=== PATIENT | male | born 1945 | race American Indian/Alaskan Native ===

== ENCOUNTER 2018-06-01 19:27 | Emergency (ER) | payer OTHER ==
[2018-06-01] MEDS ORDERED: EPINEPHrine 1 MG/10 ML SYR IV ONE (19:28)
[2018-06-01] MEDS ORDERED: ATROPINE SULF 1 MG/10 ML SYR IV ONE (19:28)
[2018-06-01 19:46] LABS: Absolute Lymphocytes (CBC) 1.3 K/uL (0.7-4.9); Absolute Monocytes 0.4 K/uL (0.1-1.3); Basophils % 0.6 % (0-1.3); Eosinophils % 1.5 % (0-4.4); Hematocrit 25.8 % (39.6-49.0); Lymphocytes % 16.8 % (15.3-44.8); MCH 29.9 pg (27.0-35.0); MPV 8.3 fL (7.6-11.3); Monocytes % 4.6 % (3.3-12.3); RBC Red Blood Cell Count 2.81 M/uL (4.33-5.43)
[2018-06-01 19:54] LABS: Protime INR 1.05
[2018-06-01] MEDS ORDERED: INSULIN -REGULAR HUMAN 50 UNIT/0.5 ML ML ONE (19:56)
[2018-06-01] MEDS ORDERED: NA CHLORIDE 0.9% 1,000 ML ONE (19:56)
[2018-06-01] MEDS ORDERED: ONDANSETRON 4 MG/2 ML VIAL ONE (19:56)
[2018-06-01 20:15] LABS: ALT/SGPT 31 U/L (12-78); AST/SGOT 41 U/L (15-37); Albumin 3.2 g/dL (3.4-5.0); Alkaline Phosphatase 137 U/L (45-117); BUN Blood Urea Nitrogen 30 mg/dL (7-18); Bicarbonate 21 mmol/L (21-32); Bilirubin Direct 0.2 mg/dL (0-0.2); Bilirubin Total 0.4 mg/dL (0.2-1.0); CKMB Creatine Kinase MB 3.7 ng/mL (0.3-3.6); Creatine Phosphokinase 91 U/L (39-308); Lipase 86 U/L (73-393); NT PRO-BNP 1990 pg/mL (<450); Potassium 5.3 mmol/L (3.5-5.1); Protein, Total 7.4 g/dL (6.4-8.2); Sodium Level 137 mmol/L (136-145)
[2018-06-01 20:18] LABS: Glucose Level 469 mg/dL (74-106)
[2018-06-01] MEDS ORDERED: LEVALBUTEROL 1.25 MG/3 ML NEB ONE ×2 (20:18→22:17)
--- NOTE | 2018-06-01 20:23 | RAD REPORT ---
EXAM DESCRIPTION: Lupis Single View06/01/2018 7:56 pm CLINICAL HISTORY: Shortness of breath COMPARISON: None FINDINGS: Mild bilateral pulmonary opacities are present. The heart is mildly to moderately enlarge d. Postsurgical changes involve the chest. IMPRESSION: Mild CHF
--- NOTE | 2018-06-01 20:26 | RAD REPORT ---
EXAM DESCRIPTION: CT - Head Brain Wo Cont - 06/01/2018 8:04 pm CLINICAL HISTORY: Syncope COMPARISON: None. TECHNIQUE: Computed axial tomography of the head was obtained. IV contrast was not requested. All CT scans are performed using dose optimization technique as appropriate and may include automated exposure control or mA/KV adjustment according to patient size. FINDINGS: An intracranial bleed is not seen . The ventricles are normal in caliber. No extra-axial fluid collection is noted. Small low-density area within the right basal ganglia may r epresent an old lacunar infarction. Mild cerebral atrophy is seen. Vascular calcifications are presen t Fluid within the sinuses/ mastoids is not seen. IMPRESSION: No acute intracranial abnormality is seen. If patient's symptoms persist MRI of the bra in would be recommended.
[2018-06-01] MEDS ORDERED: NA CHLORIDE 0.9% 250 ML ONE (21:17)
[2018-06-01] MEDS ORDERED: PANTOPRAZOLE 40 MG INJ ONE (21:17)
[2018-06-01] MEDS ORDERED: FENTANYL CITR 100 MCG/2 ML ONE (21:44)
[2018-06-01] MEDS ORDERED: LORazepam 2 MG/ML VIAL ONE (21:51)
[2018-06-01] MEDS ORDERED: NA CHLORIDE 0.9% 500 ML ONE ×3 (21:58→23:09)
[2018-06-01 22:18] LABS: Potassium 4.6 mmol/L (3.5-5.1)
--- NOTE | 2018-06-01 22:23 | ER ---
Nurse's Notes [facility] Name: Nnacy Vyas Age: 73 yrs Sex: Male : 1945 Arrival Date: 06/01/2018 Time: 19:32 Bed 4 Private MD: Diagnosis: Lower GI bleed;Pulmonary edema;Dyspnea, unspecified;Syncope and collapse;Bradycardia, unspecified Presentation: 06/01 19:25 Method Of Arrival: EMS: [facility] 19:25 Presenting complaint: Child states: that pt [place] the [place] the beach and passed fc out. Denies swallowing any water. Pt is extremely nauseated and vomiting. Transition of care: patient was not received from another setting of care. Onset of symptoms was June 01, 2018 at 18:30. Risk Assessment: Do you want to hurt yourself or someone else? Patient reports no desire to harm self or others. Initial Sepsis Screen: Does the patient meet any 2 criteria? RR > 20 per min. HR > 90 bpm. Yes Does the patient have a suspected source of infection? Yes: Other: unknown. Care prior to arrival: Glucose check: 500. 19:25 Acuity: OMAR 2 Triage Assessment: 19:49 General: Appears slender, Behavior is cooperative, appropriate for age, flat. Pain: fc Denies pain. EENT: No deficits noted. Neuro: Level of Consciousness is awake, alert, obeys commands, Oriented to person, place, time, situation, Reports dizziness. Cardiovascular: No deficits noted. Respiratory: No deficits noted. GI: Abdomen is flat, Bowel sounds present X 4 quads. Abd is soft and non tender X 4 quads. Reports nausea, vomiting. : No deficits noted. Derm: Skin is pink, warm \T\ dry. Musculoskeletal: Circulation, motion, and sensation intact. Capillary refill < 3 seconds, Range of motion: intact in all extremities. Historical: - Allergies: 19:49 No Known Allergies; fc - Home Meds: 19:49 Ranexa 500 mg oral Tb12 1 tab 2 times per day [Active]; BRILINTA 60 mg oral tab 1 tab 2 fc times per day [Active]; losartan oral 12.5 oral 1 tab once daily [Active]; atorvastatin 40 mg oral tab 1 tab once daily [Active]; metoprolol tartrate 50 mg Oral tab 1 tab 2 times per day [Active]; aspirin 81 mg Oral TbEC 1 tab once daily [Active]; Lantus 100 unit/mL Sub-Q soln 30 unit twice a day [Active]; fluticasone inhalation inhalation 1 puff 2 times per day [Active]; Spiriva with HandiHaler 18 mcg inhalation CpDv 1 cap once daily [Active]; Humalog Pen Sub-Q before meals [Active]; - PMHx: 19:49 Diabetes - IDDM; Hypertension; Hyperlipidemia; High Cholesterol; Myocardial infarction; fc CAD; - PSHx: 19:49 CABG; Heart stents; Knee surgery; fc - Immunization history:: Last tetanus immunization: up to date. - Social history:: Smoking status: Patient/guardian denies using tobacco. - Ebola Screening: : Patient negative for fever greater than or equal to 101.5 degrees Fahrenheit, and additional compatible Ebola Virus Disease symptoms Patient denies exposure to infectious person Patient denies travel to an Ebola-affected area in the 21 days before illness onset. - Family history:: not pertinent. - Hospitalizations: : No recent hospitalization is reported. Screenin:25 Abuse screen: Denies threats or abuse. Nutritional screening: No deficits noted. fc Tuberculosis screening: No symptoms or risk factors identified. Fall Risk None identified. Assessment: 19:45 General: Appears in no apparent distress. comfortable, Behavior is calm, cooperative, ao appropriate for age. Pain: Denies pain. Neuro: Level of Consciousness is awake, alert, obeys commands, Oriented to person, place, time, situation, Appropriate for age Moves all extremities. Full function Speech is normal. Cardiovascular: Capillary refill < 3 seconds Patient's skin is warm and dry. Respiratory: Airway is patent Respiratory effort is even, unlabored, Respiratory pattern is regular, symmetrical. GI: Abdomen is flat. GI: Reports nausea, vomiting. : No signs and/or symptoms were reported regarding the genitourinary system. EENT: No signs and/or symptoms were reported regarding the EENT system. Derm: Skin is intact, Skin is pink, warm \T\ dry. normal, Skin temperature is warm. Musculoskeletal: Circulation, motion, and sensation intact. Range of motion:. 21:25 Reassessment: Patient states feeling dizzy; Passed exhibited seizure-like activity at lp1 this time, lying in bed, snoring respirations noted, unresponsive to painful stimuli, eye deviation to left side, lasted about 20 seconds, HR noted at 46 during activity; Patient alert and oriented after episode. 21:49 Reassessment: Patient passed out at this time, snoring respirations noted, Dr. Wetzel at 1 bedside. 22:00 General: Appears ill, Behavior is drowsy. Pain: Complains of pain in chest. Neuro: lp1 Level of Consciousness is awake, alert, obeys commands, Oriented to person, place, situation. Cardiovascular: Capillary refill < 3 seconds in bilateral fingers toes. Respiratory: Airway is patent Trachea midline Respiratory effort is labored, Respiratory pattern is regular. GI: Abdomen is non-distended. Derm: Skin is intact, Skin is dry, Skin is pale, Skin temperature is cool. 22:17 Reassessment: Report given to LOGAN with [facility], will call back with ETA. 1 22:33 Reassessment: Report given to TESSA Bernstein at [facility] in [facility], Room 264; Son, lpAlan Sawant left number [phone]. 22:40 Reassessment: Patient passed out again at this time; [facility] at bedside, HR at 72; lp1 Dr. Wetzel called to bedside. 22:52 Reassessment: 1st unit of PRBC given at this time; pressure bag used; See Blood [facility] Transfusion sheet for vitals. 23:00 Reassessment: [facility] to intubate patient at this time. lp1 23:12 Reassessment: Patient bradycardic then CPR initiated; [place], Atropine, Calcium given lp1 IV. 23:15 Reassessment: 2nd unit of PRBC given to [facility] to be transfused during flight. 1 Vital Signs: 19:25 BP 105 / 52; Pulse 103; Resp 24; Temp 97.4(A); Pulse Ox 95% on R/A; Weight 82.1 kg (R); Height 5 ft. 10 in. (177.80 cm) (R); Pain 0/10; 20:00 BP 105 / 56; Pulse 101; Resp 26; Pulse Ox 96% on 4 lpm NC; lp1 21:15 BP 95 / 59; Pulse 109; Resp 24; Pulse Ox 92% on 4 lpm NC; lp1 21:28 BP 104 / 60; Pulse 85; Resp 24; Pulse Ox 94% on 4 lpm NC; lp1 22:15 BP 95 / 54; Pulse 108; Resp 24; Temp 97.7(A); Pulse Ox 99% on 50% BiPAP; lp1 22:30 BP 93 / 65; Pulse 111; Resp 28; Pulse Ox 100% on 50% BiPAP; lp1 19:25 Body Mass Index 25.97 (82.10 kg, 177.80 cm) fc 22:15 Bipap settings, 12/6, 50% O2, Rate of 12 lp1 Syl Coma Score: 22:15 Eye Response: spontaneous(4). Verbal Response: oriented(5). Motor Response: obeys lp1 commands(6). Total: 15. ED Course: 19:25 No provider procedures requiring assistance completed. fc 19:25 Arm band placed on Patient placed in an exam room, on a stretcher. fc 19:25 Patient has correct armband on for positive identification. Placed in gown. Bed in low fc position. Call light in reach. Side rails up X2. electronic device monitor on. Pulse ox on. NIBP on. 19:26 EKG done, by ED staff, reviewed by Antwan Wetzel MD. fc 19:32 Patient arrived in ED. sg 19:32 Antwan Wetzel MD is Attending Physician. rn 19:32 Initial lab(s) drawn, by or, sent to lab. Inserted saline lock: 20 gauge in right sg antecubital area, using aseptic technique. Blood collected. 19:40 Triage completed. fc 19:46 Refugio Mary RN is Primary Nurse. ao 19:54 X-ray completed. Portable x-ray completed in exam room. Patient tolerated procedure kw well. 19:55 XRAY Chest (1 view) In Process Unspecified. EDMS 20:04 CT Head Brain wo Cont In Process Unspecified. EDMS 20:04 CT completed. Patient tolerated procedure well. Patient moved back from CT. bq 20:17 Notified ED physician of a critical lab result(s). glucose 469. fc 21:50 Inserted saline lock: 20 gauge in left antecubital area, using aseptic technique. By lp1 eRfugio Mary RN. 23:28 Patient transferred, IV remains in place. lp1 Administered Medications: Discontinued: NS 0.9% 1000 ml IV at 1000 ml once 19:55 Drug: NS 0.9% 1000 ml Route: IV; Rate: 1000 ml; Site: right antecubital; ao 19:58 Drug: Zofran 4 mg Route: IVP; Site: right antecubital; ao 21:21 Follow up: Response: No adverse reaction; Marked relief of symptoms; Vomiting decreased lp1 20:23 Drug: Xopenex 1.25 mg Route: Inhalation; ao 20:30 Drug: Insulin Regular Human 10 units {Co-Signature: lp1 (Carol Solorzano RN).} Route: Sub-Q; ao Site: left upper arm; 21:52 Follow up: Response: Blood sugar is lowered lp1 21:51 Drug: ProTONIX 40 mg Route: IVP; Site: right antecubital; lp1 22:11 Follow up: Response: No adverse reaction lp1 21:51 Drug: ProTONIX 8 mg/hr Route: IV; Rate: 25 ml/hr; Site: right antecubital; lp1 22:38 Follow up: IV Status: Infusion continued upon transfer lp1 21:53 Drug: fentaNYL (PF) 25 mcg Route: IVP; Site: right antecubital; lp1 22:37 Follow up: Response: No adverse reaction lp1 21:55 Drug: NS 0.9% 250 ml Route: IV; Rate: 1 bolus; Site: right antecubital; lp1 22:37 Follow up: IV Status: Completed infusion; IV Intake: 250ml lp1 22:15 Drug: Xopenex 1.25 mg Route: Inhalation; lp1 Point of Care Testing: Blood Glucose: 19:31 Blood Glucose: 457 mg/dL; fc 21:31 Blood Glucose: 457 mg/dL; lp1 Guaiac: 20:55 Stool Guaiac: Positive; Stool Hemoccult Control: Pass; rn Ranges: Intake: 22:37 IV: 250ml; Total: 250ml. lp1 Outcome: 21:51 critical lp1 22:18 Instructed on the need for transfer. lp1 22:22 ER care complete, transfer ordered by . rn 23:32 Transferred by helicopter to [facility], Transfer form completed. lp1 X-rays sent w/ patient. Note: Transferred to [facility] in the [place] 23:32 Condition: deteriorated 23:36 Patient left the ED. lp1 Signatures: Dispatcher [employer] EDMS Blake Ortega, RN TESSA Wendi Mcneil Felicia, RN Antwan Bansal MD MD rn Whitley, Kimberlee kw Pena, Laura, RN RN lp1 Refugio Mary RN TESSA Solorzano RN lp1 Corrections: (The following items were deleted from the chart) 21:50 21:15 Reassessment: Patient states feeling dizzy; Passed out at this time, lying in lp1 bed, snoring respirations noted, unresponsive to painful stimuli, lasted about 20 seconds; Patient alert and oriented after episode lp1 21:50 21:15 Reassessment: Patient states feeling dizzy; Passed exhibited seizure-like lp1 activity at this time, lying in bed, snoring respirations noted, unresponsive to painful stimuli, eye deviation to left side, lasted about 20 seconds; Patient alert and oriented after episode lp1 22:07 21:15 Reassessment: Patient states feeling dizzy; Passed exhibited seizure-like lp1 activity at this time, lying in bed, snoring respirations noted, unresponsive to painful stimuli, eye deviation to left side, lasted about 20 seconds, HR noted at 46 during activity; Patient alert and oriented after episode lp1 22:35 21:49 Neuro: Seizure activity noted at this time. Dr. Wetzel at bedside after, patient lp1 oriented lp1 22:36 22:15 BP 95 / 54; Pulse 108bpm; Resp 24bpm; Pulse Ox 99% 02 50% BiPAP; Bipap settings, lp1 12/6, 50% O2, Rate of 12; lp1 23:32 23:15 Reassessment: Patient bradycardic then CPR initiated; [place], Atropine, Calcium lp1 given IV lp1 23:38 22:00 Derm: Skin is intact, Skin is dry, Skin is normal, Skin temperature is cool lp1 lp1
--- NOTE | 2018-06-01 22:23 | EDPHYS ---
Physician Documentation [facility] Name: Nancy Vyas Age: 73 yrs Sex: Male : 1945 Arrival Date: 06/01/2018 Time: 19:32 Bed 4 Private MD: ED Physician Antwan Wetzel HPI: 06/01 19:58 This 73 yrs old Other Male presents to ER via EMS with complaints of dizziness, syncope.rn 19:58 The patient has experienced syncope. Onset: The symptoms/episode began/occurred just rn prior to arrival. Onset: The symptoms/episode began/occurred 1 hour(s) ago. Duration: This was a single episode. Associated signs and symptoms: Pertinent positives: dizziness, nausea, vomiting. The patient has not experienced similar symptoms in the past. Reports felt ok earlier in day, was at beach, indoors, went outside to water when sun going down, complained of nausea/vomiting/dizziness, sudden onset, no chest pain/abd pain. Had syncopal episode in water, family states only in water less than 1 minute and pulle dhim out, + mild sob. . Historical: - Allergies: 19:49 No Known Allergies; fc - Home Meds: 19:49 Ranexa 500 mg oral Tb12 1 tab 2 times per day [Active]; BRILINTA 60 mg oral tab 1 tab 2 fc times per day [Active]; losartan oral 12.5 oral 1 tab once daily [Active]; atorvastatin 40 mg oral tab 1 tab once daily [Active]; metoprolol tartrate 50 mg Oral tab 1 tab 2 times per day [Active]; aspirin 81 mg Oral TbEC 1 tab once daily [Active]; Lantus 100 unit/mL Sub-Q soln 30 unit twice a day [Active]; fluticasone inhalation inhalation 1 puff 2 times per day [Active]; Spiriva with HandiHaler 18 mcg inhalation CpDv 1 cap once daily [Active]; Humalog Pen Sub-Q before meals [Active]; - PMHx: 19:49 Diabetes - IDDM; Hypertension; Hyperlipidemia; High Cholesterol; Myocardial infarction; fc CAD; - PSHx: 19:49 CABG; Heart stents; Knee surgery; fc - Immunization history:: Last tetanus immunization: up to date. - Social history:: Smoking status: Patient/guardian denies using tobacco. - Ebola Screening: : Patient negative for fever greater than or equal to 101.5 degrees Fahrenheit, and additional compatible Ebola Virus Disease symptoms Patient denies exposure to infectious person Patient denies travel to an Ebola-affected area in the 21 days before illness onset. - Family history:: not pertinent. - Hospitalizations: : No recent hospitalization is reported. ROS: 19:58 Constitutional: Negative for fever, chills, and weight loss, Eyes: Negative for injury, rn pain, redness, and discharge, Neck: Negative for injury, pain, and swelling, Cardiovascular: Negative for chest pain, palpitations, and edema, Respiratory: + mild sob Abdomen/GI: + nausea/vomiting MS/Extremity: Negative for injury and deformity, Skin: Negative for injury, rash, and discoloration, Neuro: Negative for headache, numbness, tingling, and seizure. Exam: 19:58 Constitutional: This is a well developed, well nourished patient who is awake but rn appears tired and slow to respond Head/Face: Normocephalic, atraumatic. Eyes: Pupils equal round and reactive to light, extra-ocular motions intact. Lids and lashes normal. Conjunctiva and sclera are non-icteric and not injected. Cornea within normal limits. Periorbital areas with no swelling, redness, or edema. ENT: dry MM Cardiovascular: tachycardic, regular, no murmur Respiratory: decreased breath sounds bilaterally, no wheezing, mild tachypnea Abdomen/GI: Soft, non-tender, with normal bowel sounds. No distension or tympany. No guarding or rebound. No evidence of tenderness throughout. MS/ Extremity: Pulses equal, no cyanosis. Neurovascular intact. Full, normal range of motion. Equal circumference. Neuro: Awake, GCS 15, oriented to person, place, time, and situation. Cranial nerves II-XII grossly intact. Motor strength 5/5 in all extremities. Sensory grossly intact. Cerebellar exam normal. Vital Signs: 19:25 BP 105 / 52; Pulse 103; Resp 24; Temp 97.4(A); Pulse Ox 95% on R/A; Weight 82.1 kg (R); fc Height 5 ft. 10 in. (177.80 cm) (R); Pain 0/10; 20:00 BP 105 / 56; Pulse 101; Resp 26; Pulse Ox 96% on 4 lpm NC; lp1 21:15 BP 95 / 59; Pulse 109; Resp 24; Pulse Ox 92% on 4 lpm NC; lp1 21:28 BP 104 / 60; Pulse 85; Resp 24; Pulse Ox 94% on 4 lpm NC; lp1 22:15 BP 95 / 54; Pulse 108; Resp 24; Temp 97.7(A); Pulse Ox 99% on 50% BiPAP; lp1 22:30 BP 93 / 65; Pulse 111; Resp 28; Pulse Ox 100% on 50% BiPAP; lp1 19:25 Body Mass Index 25.97 (82.10 kg, 177.80 cm) fc 22:15 Bipap settings, 12/6, 50% O2, Rate of 12 lp1 Atkinson Coma Score: 22:15 Eye Response: spontaneous(4). Verbal Response: oriented(5). Motor Response: obeys lp1 commands(6). Total: 15. MDM: 19:32 Patient medically screened. rn 20:58 ED course: Fluids stopped after a little due to pulmonary edema/chf, patient also with rn active GI bleed, states noticed blood in stool 2 days ago, exam reveals hematochezia with black/maroon blood, has been having diarrhea. Neuro exam normal including finger to nose, patient states too weak to walk. COmbination of GI bleed, anemia, weakness, sob, chf, and hyperglycemia, needs admission, family requesting transfer to [facility] given his vice principal is there, diabetic/renal doctor there, and family doctor there. . 22:08 ED course: Pt accepted to ICU at [facility], + concern for demand ischemia organisation and methods analyst uncovered ischemia due to anemia and known cardiac problems, has now had 2 syncopal episodes, correlate with episodes of bradycardia, BNP and trop elevated, + sob, will place on bipap for transfer. Called for [facility]. . 22:15 ED course: On going GI Bleed precludes anticoagulation at this time.. rn 22:20 Differential Diagnosis: cardiac arrhythmia, cerebrovascular accident, emotional rn response, GI bleed, idiopathic syncope, seizure, transient ischemic attack, vasovagal episode. Data reviewed: vital signs, nurses notes, lab test result(s), EKG, radiologic studies, CT scan, plain films, and as a result, I will admit patient. Counseling: I had a detailed discussion with the patient and/or guardian regarding: the historical points, exam findings, and any diagnostic results supporting the discharge/admit diagnosis, lab results, radiology results, the need to transfer to another facility, for higher level of care, [facility] does not immediately have the required specialist. 22:57 ED course: Upon arrival at ER, le witnessed another syncopal episode and rn le made decision to intubate for transport safety.. 06/01 19:34 Order name: Basic Metabolic Panel; Complete Time: 20:46 rn 06/01 19:34 Order name: CBC with Diff; Complete Time: 19:57 rn 06/01 19:34 Order name: Ckmb; Complete Time: 20:46 06/01 19:34 Order name: CPK; Complete Time: 20:46 06/01 19:34 Order name: Hepatic Function; Complete Time: 20:46 06/01 19:34 Order name: Lipase; Complete Time: 20:46 06/01 19:34 Order name: Protime (+inr); Complete Time: 19:57 06/01 19:34 Order name: Ptt, Activated; Complete Time: 19:57 06/01 19:34 Order name: Troponin (emerg Dept Use Only); Complete Time: 21:30 06/01 19:34 Order name: N-Terminal Pro-brain Natriuretic Peptide; Complete Time: 20:46 06/01 19:34 Order name: Ketone, Serum; Complete Time: 20:46 06/01 20:56 Order name: Type And Screen 06/01 21:08 Order name: Packed RBC Leukored -1 [facility] 06/01 19:34 Order name: CT Head Brain wo Cont; Complete Time: 20:46 06/01 19:34 Order name: EKG; Complete Time: 19:34 06/01 19:34 Order name: XRAY Chest (1 view); Complete Time: 20:46 06/01 21:25 Order name: EKG; Complete Time: 21:26 mw2 06/01 21:48 Order name: Chem 7; Complete Time: 22:22 lp1 06/01 22:07 Order name: BIPAP 06/01 22:31 Order name: ABO/RH no charge [facility] 06/01 19:34 Order name: Cardiac monitoring; Complete Time: 19:46 rn 06/01 19:34 Order name: EKG - Nurse/Tech; Complete Time: 19:34 rn 06/01 19:34 Order name: IV Saline Lock; Complete Time: 19:47 rn 06/01 19:34 Order name: Labs collected and sent; Complete Time: 19:47 rn 06/01 19:34 Order name: NPO; Complete Time: 19:47 rn 06/01 19:34 Order name: O2 Per Protocol; Complete Time: 19:47 rn 06/01 19:34 Order name: O2 Sat Monitoring; Complete Time: 19:47 rn 06/01 21:25 Order name: EKG - Nurse/Tech; Complete Time: 21:51 mw2 06/01 21:42 Order name: Oxygen Per Protocol; Complete Time: 21:51 rn Administered Medications: Discontinued: NS 0.9% 1000 ml IV at 1000 ml once 19:55 Drug: NS 0.9% 1000 ml Route: IV; Rate: 1000 ml; Site: right antecubital; ao 19:58 Drug: Zofran 4 mg Route: IVP; Site: right antecubital; ao 21:21 Follow up: Response: No adverse reaction; Marked relief of symptoms; Vomiting decreased lp1 20:23 Drug: Xopenex 1.25 mg Route: Inhalation; ao 20:30 Drug: Insulin Regular Human 10 units {Co-Signature: adiel (Carol Solorzano RN).} Route: Sub-Q; ao Site: left upper arm; 21:52 Follow up: Response: Blood sugar is lowered lp1 21:51 Drug: ProTONIX 40 mg Route: IVP; Site: right antecubital; lp1 22:11 Follow up: Response: No adverse reaction lp1 21:51 Drug: ProTONIX 8 mg/hr Route: IV; Rate: 25 ml/hr; Site: right antecubital; lp1 22:38 Follow up: IV Status: Infusion continued upon transfer lp1 21:53 Drug: fentaNYL (PF) 25 mcg Route: IVP; Site: right antecubital; lp1 22:37 Follow up: Response: No adverse reaction lp1 21:55 Drug: NS 0.9% 250 ml Route: IV; Rate: 1 bolus; Site: right antecubital; lp1 22:37 Follow up: IV Status: Completed infusion; IV Intake: 250ml lp1 22:15 Drug: Xopenex 1.25 mg Route: Inhalation; lp1 Point of Care Testing: Blood Glucose: 19:31 Blood Glucose: 457 mg/dL; fc 21:31 Blood Glucose: 457 mg/dL; lp1 Guaiac: 20:55 Stool Guaiac: Positive; Stool Hemoccult Control: Pass; rn Ranges: Critical Glucose Levels:Adult <50 mg/dl or >400 mg/dl <40 mg/dl or >180 mg/dl Disposition: 06/01/18 22:22 Transfer ordered to Other Acute Care Facility. Diagnosis are Lower GI bleed, Pulmonary edema, Dyspnea, unspecified, Syncope and collapse, Bradycardia, unspecified. - Reason for transfer: Higher level of care. - Accepting physician is Marisa. - Condition is Fair. - Problem is new. - Symptoms are unchanged. Critical care time excluding procedures: 22:20 Critical care time: Bedside Care: 50 minutes, Consultation: 15 minutes, Family rn Intervention: 10 minutes. Total time: 75 minutes Signatures: Dispatcher [employer] EDSwathi Coats RN RN Antwan Wetzel MD MD rn Pena, Laura, RN RN lp1 Refugio Mary RN Kyler Hernández 2 Carol Solorzano RN lp1 Corrections: (The following items were deleted from the chart) 23:36 22:22 06/01/2018 22:22 Transfer ordered to Other Acute Care Facility. Diagnosis is lp1 Lower GI bleed; Pulmonary edema; Dyspnea, unspecified; Syncope and collapse; Bradycardia, unspecified. Reason for transfer: Higher level of care. Accepting physician is Marisa. Condition is Fair. Problem is new. Symptoms are unchanged. rn
--- NOTE | 2018-06-02 06:29 | EKG ---
Test Date: 2018-06-01 Test Time: 19:26:12 Adobe Architect: MEASUREMENT RESULTS: Intervals: Rate: 102 NE: QRSD: 174 QT: 430 QTc: 560 [place]: P: NE: QRS: 266 T: 92 INTERPRETIVE STATEMENTS: Ventricular tachycardia Abnormal ECG No previous ECG available for comparison Electronically Signed On 06-02-18 06:29:18 CDT by Abraham Wheeler
--- NOTE | 2018-06-02 06:29 | EKG ---
Test Date: 2018-06-01 Test Time: 21:31:57 Manager Discovery: ALLISON MEASUREMENT RESULTS: Intervals: Rate: 118 SD: QRSD: 186 QT: 438 QTc: 613 [place]: P: SD: QRS: 262 T: 84 INTERPRETIVE STATEMENTS: ventricular tachycardia Abnormal ECG No previous ECG available for comparison Electronically Signed On 06-02-18 06:28:48 CDT by Abraham Wheeler
== END 2018-06-01 23:36 ==
LOC: ER 19:27 → EDBD 19:27 → ER 23:36
PROC: 5A09357 Assistance with Respiratory Ventilation, Less than 24 Consecutive Hours, Continuous Positive Airway Pressure (ICD-10-PCS; principal; 2018-06-01)
PROC: 30233N1 Transfusion of Nonautologous Red Blood Cells into Peripheral Vein, Percutaneous Approach (ICD-10-PCS; 2018-06-01)
DX: R55 Syncope and collapse (principal); R42 Dizziness and giddiness; E78.5 Hyperlipidemia, unspecified; Z79.02 Long term (current) use of antithrombotics/antiplatelets; Z79.82 Long term (current) use of aspirin; Z79.4 Long term (current) use of insulin; E78.00 Pure hypercholesterolemia, unspecified; I25.2 Old myocardial infarction; Z95.5 Presence of coronary angioplasty implant and graft; K92.1 Melena; I11.0 Hypertensive heart disease with heart failure; I50.9 Heart failure, unspecified; E11.65 Type 2 diabetes mellitus with hyperglycemia; D64.9 Anemia, unspecified; R00.1 Bradycardia, unspecified; I47.2 Ventricular tachycardia
CPT/HCPCS: 36415; 36430; 70450; 71045; 80048 ×2; 80076; 82010; 82550; 82553; 82962 ×2; 83690; 83880; 84484; 85025; 85610; 85730; 86850; 86900; 86901; 93005 ×2; 94660; C9113; J2405; J3010; J7030; P9016 ×2; 96365; 96372; 96375; 99285; J0171